=== PATIENT | female | born 1970 | race Caucasian/White ===

== ENCOUNTER → 2018-07-25 16:54 | Emergency (ER) | payer MEDICARE, MEDICAID ==
[~2018-07-25 16:54] MED LIST: Ketorolac INJ* 30 MG/ML 1 ML VIAL IM ONE
--- NOTE | 2018-07-25 18:18 | ED ---
Abdominal Pain/Female - HPI Summary HPI Summary: Provider saw patient in triage. This patient is a 47 year old F presenting to [facility] with a chief complaint of RUQ abdominal pain since 07/21/18 that is getting gradually worse. Per the triage notes, she describes it as a gallbladder attack. 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 She has now been clean for 2 months. The patient rates the pain 10/10 in severity currently. Symptoms aggravated by deep breaths. Patient reports normal bowel movements. She last took ibuprofen yesterday for the pain and last ate a meal ( soup) during lunch. - History of Current Complaint Chief Complaint: EDAbdPain Stated Complaint: RT SIDED STOMACH PAIN PER PATIENT Hx Obtained From: Patient Onset/Duration: Sudden Onset, Lasting Days - 07/22/18, Still Present Severity Currently: Severe Pain Intensity: 10 Pain Scale Used: 0-10 Numeric Location: Discrete At: RUQ Aggravating Factor(s): Deep Breaths, Other: - Eating soup Alleviating Factor(s): Nothing Associated Signs and Symptoms: Negative: Constipation - She reports normal bowel movements. Allergies/Adverse Reactions: Allergies Allergy/AdvReac Type Severity Reaction Status Date / Time No Known Allergies Allergy Verified 07/25/18 17:07 PMH/Surg Hx/FS Hx/Imm Hx History: Denies: Hx Kidney Stones Psychiatric History: Reports: Hx Bipolar Disorder - Manic depressive bipolar disorder - Surgical History Surgery Procedure, Year, and Place: Hysterectomy in her 30s, Left Knee Arthroscopy Infectious Disease History: No Infectious Disease History: Denies: Traveled Outside the [place] in Last 30 Days - Family History Known Family History: Positive: Other - Cancer in older siblings - Social History Occupation: Unemployed Alcohol Use: None Hx Substance Use: Yes - Recovering alcoholic and crack cocaine user. 2 months clean Substance Use Type: Reports: Cocaine - Crack cocaine Smoking Status (MU): Light Every Day Tobacco Smoker Type: Cigarettes Amount Used/How Often: 1/3 PPD Have You Smoked in the Last Year: Yes Review of Systems Constitutional: Negative Negative: Fever Eyes: Negative ENT: Negative Cardiovascular: Negative Respiratory: Negative Positive: Abdominal Pain - RUQ abdominal pain, described as a "gallbladder attack" (per triage note), Other - Normal bowel movements Genitourinary: Negative Musculoskeletal: Negative Skin: Negative Neurological: Negative Psychological: Normal All Other Systems Reviewed And Are Negative: Yes Physical Exam - Summary Physical Exam Summary: Appearance: Ill-appearing, moderate pain distress, well-nourished Skin: Warm, color reflects adequate perfusion, dry Head: Normal Head/Face inspection, atraumatic Eyes: Conjunctiva clear ENT: Normal inspection Neck: Supple, no nodes, no JVD Respiratory: Lungs clear, normal breath sounds, no respiratory distress Cardio: RRR, No murmur, pulses normal, brisk capillary refill Abdomen: Tender RUQ. No rebound, no guarding, no masses, non-distended. No CVAT. Bowel sounds: Present Musculoskeletal: Strength Intact/ROM intact, no calf tenderness, no edema. Psychological: Normal Neuro: Alert, muscle tone normal, no focal deficit Triage Information Reviewed: Yes Vital Signs On Initial Exam: Initial Vitals Temp Pulse Resp BP Pulse Ox 98.5 F 76 18 158/88 99 07/25/18 17:00 07/25/18 17:00 07/25/18 17:00 07/25/18 17:00 07/25/18 17:00 Vital Signs Reviewed: Yes Diagnostics - Vital Signs Vital Signs Temp Pulse Resp BP Pulse Ox 07/25/18 17:00 98.5 F 76 18 158/88 99 - Laboratory Result Diagrams: 07/25/18 18:48 07/25/18 18:48 Lab Statement: Any lab studies that have been ordered have been reviewed, and results considered in the medical decision making process. - Ultrasound No standard instances Ultrasound Interpretation Completed By: Radiologist Summary of Ultrasound Findings: Gallbladder US. 21:16. No sonographic findings to correlate with patient's symptomatology. ED Physician has reviewed this imaging report. - EKG 18:26 Cardiac Rate: NL - 70 BPM EKG Rhythm: Sinus Rhythm ST Segment: Normal Ectopy: None Summary of EKG Findings: nml AV/IV CT, nml QTc, and nml axis. No acute changes Re-Evaluation - Re-Evaluation 1 Re-Evaluation Time: 19:17 Change: Unchanged Comment: Still in pain and requesting food. 2 Re-Evaluation Time: 21:59 Abdominal Pain Fem Course/Dx - Course Course Of Treatment: This patient is a 47 year old F presenting to [facility] with a chief complaint of RUQ abdominal pain since 07/21/18 that is getting gradually worse. Gallbladder US: No sonographic findings to correlate with patient's symptomatology. Labs showed: Elevated ammonia 72, normal 52. Elevated CRP 10.28. Patient will be d/c with a dx of RUQ abdominal pain and hyperammonemia. Pt medications reviewed this visit. Nurses note reviewed. Allergies noted. - Diagnoses Provider Diagnoses: RUQ abdominal pain, Hyperammonemia Discharge - Sign-Out/Discharge Documenting (check all that apply): Patient Departure - D/C home Patient Received Moderate/Deep Sedation with Procedure: No - Discharge Plan Condition: Stable Disposition: HOME Patient Education Materials: Acute Abdominal Pain (ED) Referrals: [facility] [Outside] - 2 Days [facility] [Outside] - As Soon As Possible No Primary Care Phys,NOPCP [Primary Care Provider] - Additional Instructions: Your ultrasound of your gallbladder did not show the cause of your pain today. Your urine did not show any sign of kidney stones or blood. You were given ketorolac 30mg injectable at 9:55pm. Return to the ER if you have any new or worsening symptoms. - Attestation Statements Document Initiated by Scribe: Yes Documenting Scribe: Ernie Sandoval Provider For Whom Scribe is Documenting (Include Credential): Sylwia Woodruff MD Scribe Attestation: Ernie Subramanian, scribed for Sylwia Woodruff MD on 07/25/18 at 1787. Status of Scribe Document: Ready
[2018-07-25 18:54] LABS: ABS Basophils 0 10^3/ul (0-0.2); ABS Eosinophils 0.2 10^3/ul (0-0.6); ABS Lymphocytes 2.5 10^3/ul (1.0-4.8); ABS Monocytes 0.7 10^3/ul (0-0.8); ABS Neutrophils 2.2 10^3/ul (1.5-7.7); ABS Nucleated RBC 0 10^3/ul; Eosinophil % 2.7 %; Hematocrit 36 % (35-47); Hemoglobin 11.4 g/dl (12.0-16.0); Lymphocyte % 44.8 %; Mean Corpuscular HGB Conc 32 g/dl (31-36); Mean Corpuscular Hemoglobin 26 pg (27-31); Mean Corpuscular Volume 82 fL (80-97); Nucleated Red Blood Cells % 0.1; Platelet Count 188 10^3/ul (150-450); Red Blood Count 4.44 10^6/ul (4.00-5.40); Red Cell Distribution Width 17 % (10.5-15); White Blood Count 5.7 10^3/ul (3.5-10.8)
[2018-07-25 19:05] LABS: Urine Appearance Clear; Urine Bilirubin Negative (Negative); Urine Blood Negative (Negative); Urine Color Yellow; Urine Glucose Negative (Negative); Urine Ketones Negative (Negative); Urine Nitrite Negative (Negative); Urine Protein Negative (Negative); Urine Specific Gravity 1.017 (1.010-1.030); Urine Urobilinogen Negative (Negative)
[2018-07-25 19:06] LABS: INR 0.85 (0.77-1.02)
[2018-07-25 19:12] LABS: Albumin 4.2 g/dL (3.2-5.2); Albumin/Globulin Ratio 1.6 (1-3); BUN/Creatinine Ratio 18.4 (8-20); C Reactive Protein 10.28 mg/L (<8.01); Calcium 9.2 mg/dL (8.6-10.3); EGFR Non-African American 60.3 (>60); Globulin 2.6 g/dL (2-4); Potassium 4.4 mmol/L (3.5-5.0); Total Bilirubin 0.3 mg/dL (0.2-1.0); Total Protein 6.8 g/dL (6.4-8.9)
[2018-07-25 22:21] VITALS: BP 0/0
[2018-07-25 22:26] LABS: Barbiturates Urine Screen None Detected (None Detect); Benzodiazepine Urine Screen None Detected (None Detect); Urine Cannabinoids Screen None Detected (None Detect)
== END | disposition home or self-care (01) ==
LOC: ED 16:54
DX: R10.11 Right upper quadrant pain (principal); F17.210 Nicotine dependence, cigarettes, uncomplicated; E72.20 Disorder of urea cycle metabolism, unspecified
CPT/HCPCS: 36415; 76705; 80053; 80307; 81003; 82140; 82150; 82550; 83605; 83690; 83735; 85025; 85610; 86140; 93005; 96372; 99283; J1885

== ENCOUNTER 2018-07-27 08:42 | Emergency (ER) | payer MEDICARE, MEDICAID ==
[2018-07-27] MEDS ORDERED: NS 0.9% 1000 ML** 1,000 ML IV ONE (08:54)
[2018-07-27] MEDS ORDERED: Ketorolac INJ* 30 MG/ML 1 ML VIAL IV PUSH ONE (08:55)
[2018-07-27] MEDS ORDERED: Ondansetron INJ* 2 MG/ML VIAL IV ONE (08:56)
--- NOTE | 2018-07-27 09:04 | ED ---
Abdominal Pain/Female - HPI Summary HPI Summary: A 47 y/o female brought in by [place] ambulance presents to [facility] with a chief complaint of abdominal pain since 07/24/18. The patient reports that her pain was more right sided. She c/o N/V. She denies fevers or chills. Breathing aggravates her pain. She rated her pain as a 10/10 ins everity. She claims that she takes Depakote and muscle relaxers. She reports that she still has her gallbladder. She reports taking ibuprofen [employer], but this has not alleviated her pain. She has a SHx of hysterectomy, claiming that she had tumors. FHx of kidney stones. She reports currently being in [facility] recovery for alcohol abuse. Vital signs while in room - HR: 82 bpm, O2 Sat: 98. - History of Current Complaint Chief Complaint: EDAbdPain Stated Complaint: RT SIDED PAIN PER PT Time Seen by Provider: 07/27/18 08:44 Hx Obtained From: Patient, EMS Onset/Duration: Sudden Onset, Lasting Days, Still Present Timing: Constant Severity Initially: Severe Severity Currently: Severe Pain Intensity: 10 Pain Scale Used: 0-10 Numeric Location: Discrete At: RUQ Radiates: No Character: Other: - Unable to describe Aggravating Factor(s): Nothing Alleviating Factor(s): Nothing Associated Signs and Symptoms: Positive: Nausea, Vomiting. Negative: Fever Allergies/Adverse Reactions: Allergies Allergy/AdvReac Type Severity Reaction Status Date / Time No Known Allergies Allergy Verified 07/25/18 17:07 Home Medications: Home Medications Baclofen TAB* [Lioresal TAB*] 20 mg PO TID 07/27/18 [History Confirmed 07/27/18 ] Benztropine TAB* [Cogentin TAB*] 2 mg PO BID 07/27/18 [History Confirmed ] Divalproex Sodium [Depakote] 500 mg PO DAILY 07/27/18 [History Confirmed ] Gabapentin 400 mg PO TID 07/27/18 [History Confirmed 07/27/18] Naltrexone TAB* 50 mg PO DAILY 07/27/18 [History Confirmed 07/27/18] PMH/Surg Hx/FS Hx/Imm Hx History: Denies: Hx Kidney Stones Psychiatric History: Reports: Hx Bipolar Disorder - Manic depressive bipolar disorder - Surgical History Surgery Procedure, Year, and Place: Hysterectomy in her 30s, Left Knee Arthroscopy Infectious Disease History: No Infectious Disease History: Denies: Traveled Outside the [place] in Last 30 Days - Family History Known Family History: Positive: Other - Cancer in older siblings, kidney stones - Social History Alcohol Use: None Hx Substance Use: Yes - Recovering alcoholic and crack cocaine user. 2 months clean Substance Use Type: Reports: Cocaine - Crack cocaine Smoking Status (MU): Light Every Day Tobacco Smoker Type: Cigarettes Amount Used/How Often: 1/3 PPD Have You Smoked in the Last Year: Yes Review of Systems Negative: Fever, Chills Positive: Abdominal Pain, Vomiting, Nausea All Other Systems Reviewed And Are Negative: Yes Physical Exam - Summary Physical Exam Summary: GENERAL: Patient is a well-developed and nourished F who is lying comfortable in the stretcher. Patient is not in any acute respiratory distress. HEAD AND FACE: Normocephalic EYES: PERRLA, EOMI x 2. EARS: Hearing grossly intact. MOUTH: Oropharynx within normal limits. NECK: Supple, trachea is midline, no adenopathy, no JVD, no carotid bruit. CHEST: Symmetric, no tenderness at palpation LUNGS: Clear to auscultation bilaterally. No wheezing or crackles. CVS: Regular rate and rhythm, S1 and S2 present, no murmurs or gallops appreciated. ABDOMEN: Soft, TTP RUQ and epigastric region. Bowel sounds are normal. No abdominal abnormal pulsations. EXTREMITIES: Full ROM in all major joints, no edema, no cyanosis or clubbing. NEURO: Alert and oriented x 3. No acute neurological deficits. Speech is normal and follows commands. SKIN: Dry and warm Triage Information Reviewed: Yes Vital Signs On Initial Exam: Initial Vitals Temp Pulse Resp BP Pulse Ox 98.1 F 80 16 100/68 98 07/27/18 08:49 07/27/18 08:49 07/27/18 08:49 07/27/18 08:49 07/27/18 08:49 Vital Signs Reviewed: Yes Diagnostics - Vital Signs Vital Signs Temp Pulse Resp BP Pulse Ox 07/27/18 08:49 98.1 F 80 16 100/68 98 - Laboratory Result Diagrams: 07/27/18 09:04 07/27/18 09:04 Lab Statement: Any lab studies that have been ordered have been reviewed, and results considered in the medical decision making process. - CT abdomen/pelvis CT Interpretation Completed By: Radiologist Summary of CT Findings: NO ACUTE CT PATHOLOGY OF THE VISUALIZED ABDOMEN OR PELVIS. ED physician has reviewed this imaging report. Re-Evaluation - Re-Evaluation First Eval Re-Evaluation Time: 10:46 Change: Unchanged Comment: Patient is reporting that she is hungry and that she wants to eat. Second Eval Re-Evaluation Time: 10:53 Change: Unchanged Comment: Discussed discharge Abdominal Pain Fem Course/Dx - Course Course Of Treatment: A 47 y/o female brought in by [place] ambulance presents to [facility] with a chief complaint of abdominal pain since 07/24/18. The physical exam revealed that the patient was TTP in her RUQ and epigastric region. Abdomen/pelvis CT impression: NO ACUTE CT PATHOLOGY OF THE VISUALIZED ABDOMEN OR PELVIS. ED physician has reviewed this imaging report. Bloodwork, chemistries and urines obtained and are WNL. In the ED course the patient was given Iohexol (contrast) IV, Toradol IV and Zofran IV. The patient will be discharged. I discussed results with patient and she reports feeling better. She is hemodynamically stable and safe for discharge. Strict return precautions given and she will otherwise follow up with her PCP. - Diagnoses Provider Diagnoses: Abdominal pain Discharge - Sign-Out/Discharge Documenting (check all that apply): Patient Departure - DC Patient Received Moderate/Deep Sedation with Procedure: No - Discharge Plan Condition: Stable Disposition: HOME Patient Education Materials: Abdominal Pain (ED) Referrals: [facility] [Outside] (1-3 days) Additional Instructions: RETURN TO THE EMERGENCY DEPARTMENT FOR CHANGING OR WORSENING SYMPTOMS. - Billing Disposition and Condition Condition: STABLE Disposition: Home - Attestation Statements Document Initiated by Scribe: Yes Documenting Scribe: Marino Nieves Provider For Whom Adiaibnicolle is Documenting (Include Credential): Alicia Sosa MD Scribe Attestation: Marino Subramanian scribed for Alicia Sosa MD on 07/28/18 at 0836. Scribe Documentation Reviewed: Yes Provider Attestation: The documentation as recorded by the Marino carolina accurately reflects the service I personally performed and the decisions made by me, Delta Sosa MD Status of Scribe Document: Viewed
[2018-07-27 09:14] LABS: ABS Basophils 0 10^3/ul (0-0.2); ABS Eosinophils 0.1 10^3/ul (0-0.6); ABS Lymphocytes 1.3 10^3/ul (1.0-4.8); ABS Monocytes 0.7 10^3/ul (0-0.8); ABS Neutrophils 5.4 10^3/ul (1.5-7.7); ABS Nucleated RBC 0 10^3/ul; Eosinophil % 1.7 %; Hematocrit 35 % (35-47); Hemoglobin 11.2 g/dl (12.0-16.0); Lymphocyte % 17.2 %; Mean Corpuscular HGB Conc 32 g/dl (31-36); Mean Corpuscular Hemoglobin 26 pg (27-31); Mean Corpuscular Volume 81 fL (80-97); Mean Platelet Volume 9.6 fL (7.4-10.4); Nucleated Red Blood Cells % 0; Platelet Count 179 10^3/ul (150-450); Red Blood Count 4.34 10^6/ul (4.00-5.40); Red Cell Distribution Width 16 % (10.5-15); White Blood Count 7.5 10^3/ul (3.5-10.8)
[2018-07-27 09:32] LABS: Albumin 3.8 g/dL (3.2-5.2); Albumin/Globulin Ratio 1.7 (1-3); BUN/Creatinine Ratio 20.3 (8-20); C Reactive Protein 3.8 mg/L (<8.01); Calcium 8.6 mg/dL (8.6-10.3); EGFR African American 93.6 (>60); EGFR Non-African American 77.4 (>60); Globulin 2.3 g/dL (2-4); Potassium 4.1 mmol/L (3.5-5.0); Total Bilirubin 0.4 mg/dL (0.2-1.0); Total Protein 6.1 g/dL (6.4-8.9)
[2018-07-27] MEDS ORDERED: Iohexol 300* (CONTRAST) 10 ML SDV IV ONE (09:45)
[2018-07-27 10:13] LABS: Urine Appearance Clear; Urine Bilirubin Negative (Negative); Urine Blood Negative (Negative); Urine Color Yellow; Urine Glucose Negative (Negative); Urine Ketones Negative (Negative); Urine Nitrite Negative (Negative); Urine Protein Negative (Negative); Urine Specific Gravity 1.024 (1.010-1.030); Urine Urobilinogen Negative (Negative)
[2018-07-27 11:05] VITALS: BP 120/77
== END 2018-07-27 11:04 | disposition home or self-care (01) ==
LOC: ED 08:42
DX: R10.11 Right upper quadrant pain (principal); R11.2 Nausea with vomiting, unspecified; Z90.710 Acquired absence of both cervix and uterus; F17.210 Nicotine dependence, cigarettes, uncomplicated
CPT/HCPCS: 36415; 74177; 80053; 81003; 83605; 83690; 85025; 86140; 96374; 96375; 99282; J1885; J2405; Q9967